=== PATIENT | female | born 1980 | race Caucasian/White ===

== ENCOUNTER 2020-12-06 23:09 | Emergency (ER) | payer MEDICAID ==
[~2020-12-06] VITALS: Ht 167.6 cm; Wt 61.2 kg
[2020-12-06] MEDS ORDERED: CEPH250C PO (23:32)
[2020-12-06] MEDS ORDERED: TDAP DIPH,PERTUSS,TET VAC/PF 0.5 ML DISP.SYRIN IM ONE ×2 (23:40→23:45)
--- NOTE | 2020-12-06 23:45 | NUR ---
Patient discharged to home in stable condition. Written and verbal after care instructions given. Patient verbalizes understanding of instructions. Stressed follow up or return to ER for worsening s/s. All belongings with patient. Feeling + warmth + cap refill checked and WNLs in injured extremity. Steady gait. VSS.
[2020-12-06 23:47] VITALS: BP 112/70
== END 2020-12-06 23:49 | disposition home or self-care (01) ==
LOC: ER 23:14
DX: S61.411A Laceration without foreign body of right hand, initial encounter (principal); W26.0XXA Contact with knife, initial encounter; Y93.G1 Activity, food preparation and clean up; Y92.89 Other specified places as the place of occurrence of the external cause
CPT/HCPCS: 12001; 90471; 90715; 99283; J3490; A4663